=== PATIENT | male | born 1965 | race American Indian/Alaskan Native ===

== ENCOUNTER 2019-12-05 18:53 | Emergency (ER) | payer OTHER ==
--- NOTE | 2019-12-05 19:49 | XRay Report ---
Right hand 3 views INDICATION: Right hand pain following injury IMPRESSION: No fracture or subluxation of the right hand is identified. There is a chronic appearing fracture involving the ulnar styloid process. Signer Name: Merlin Gonzales MD Signed: 12/05/2019 7:45 PM Workstation Name: [id number]
--- NOTE | 2019-12-05 19:50 | XRay Report ---
Right wrist 4 views INDICATION: Right wrist pain following injury IMPRESSION: No acute fracture or subluxation of the wrist is identified. Chronic ulnar styloid proces s fracture noted. Signer Name: Merlin Gonzales MD Signed: 12/05/2019 7:45 PM Workstation Name: [id number]
[2019-12-05] MEDS ORDERED: HYDROcodone/ACETAMINOPHEN 5-325 MG TAB PO ONE (20:09)
--- NOTE | 2019-12-05 20:32 | Emergency Department Report ---
ED Upper Extremity Inj HPI - General Chief Complaint: Extremity Injury, Upper Stated Complaint: RIGHT HAND INJURY Time Seen by Provider: 12/05/19 19:31 Source: patient Mode of arrival: Ambulatory Limitations: No Limitations - History of Present Illness Initial Comments: Patient is a 54-year-old male presents emergency room with complaints of a right arm injury that occurred just prior to arrival. He states that he was helping to move a heavy generator and they accidentally dropped it and his arm got pushed between the generator and the forklift. He denies prolonged crush and states that it happened very quickly. He has pain to his right thumb, right index finger, right wrist. He states he has a tingling sensation in his right index finger. He denies any complete numbness or weakness. He denies any past medical history or allergies to medications. This occurred while he was working on the job. - Related Data Previous Rx's Medication Instructions Recorded Last Taken Type HYDROcodone/APAP 5-325 [[place] 1 each PO Q6HR PRN #10 tablet 12/05/19 Unknown Rx 5/325] Ibuprofen [Motrin 600 MG tab] 600 mg PO Q8H PRN #20 tablet 12/05/19 Unknown Rx Allergies Allergy/AdvReac Type Severity Reaction Status Date / Time No Known Allergies Allergy Unverified 12/05/19 19:03 ED Review of Systems ROS: Stated complaint: RIGHT HAND INJURY Other details as noted in HPI Comment: All other systems reviewed and negative ED Past Medical Hx - Past Medical History Previous Medical History?: No - Surgical History Past Surgical History?: No - Social History Smoking Status: Current Every Day Smoker Substance Use Type: Alcohol - Medications Home Medications: Home Medications Medication Instructions Recorded Confirmed Last Taken Type HYDROcodone/APAP 5-325 [[place] 1 each PO Q6HR PRN #10 tablet 12/05/19 Unknown Rx 5/325] Ibuprofen [Motrin 600 MG tab] 600 mg PO Q8H PRN #20 tablet 12/05/19 Unknown Rx ED Physical Exam - General Limitations: No Limitations General appearance: alert, in no apparent distress - Head Head exam: Present: atraumatic, normocephalic - Eye Eye exam: Present: normal appearance - ENT ENT exam: Present: mucous membranes moist - Extremities Exam Extremities exam: Present: other (ttp to the right lateral wrist, ttp to the right thumb, ttp to the right index finger MCP joint with edema present, there is ecchymosis present to the right anterior wrist, 2+ distal pulses, sensation intact, FROM of the right wrist, no snuffbox ttp, FROM of the right thumb, middle finger, ring finger and pinky finger, he is not able to fully flex the right index finger, he states he feels a pulling sensation when he attempts to flex the index finger, compartments are soft) - Neurological Exam Neurological exam: Present: alert, oriented X3 - Psychiatric Psychiatric exam: Present: normal affect, normal mood - Skin Skin exam: Present: warm, dry ED Course Vital Signs 12/05/19 12/05/19 18:59 21:03 Temperature 98.2 F 98.7 F Pulse Rate 82 63 Respiratory 18 18 Rate Blood Pressure 150/79 Blood Pressure 133/86 [Left] O2 Sat by Pulse 98 99 Oximetry ED Medical Decision Making - Radiology Data Radiology results: report reviewed Right wrist 4 views INDICATION: Right wrist pain following injury IMPRESSION: No acute fracture or subluxation of the wrist is identified. Chronic ulnar styloid process fracture noted. Signer Name: Merlin Gonzales MD Signed: 12/05/2019 7:45 PM Workstation Name: [id number] Transcribed By: SHELDON Dictated By: Merlin Gonzales MD Electronically Authenticated By: Merlin Gonzales MD Signed Date/Time: 12/05/191944 DD/ 44 TD/TT: Right hand 3 views INDICATION: Right hand pain following injury IMPRESSION: No fracture or subluxation of the right hand is identified. There is a chronic appearing fracture involving the ulnar styloid process. Signer Name: Merlin Gonzales MD Signed: 12/05/2019 7:45 PM Workstation Name: [id number] Transcribed By: Dictated By: Merlin Gonzales MD Electronically Authenticated By: Merlin Gonzales MD Signed Date/Time: 12/05/191944 DD/ 43 TD/TT: - Medical Decision Making Patient is a 54-year-old male presents emergency room with complaints of a right arm injury that occurred just prior to arrival. He states that he was helping to move a heavy generator and they accidentally dropped it and his arm got pushed between the generator and the forklift. He denies prolonged crush and states that it happened very quickly. He has pain to his right thumb, right index finger, right wrist. He states he has a tingling sensation in his right index finger. He denies any complete numbness or weakness. He denies any past medical history or allergies to medications. This occurred while he was working on the job. VSS. on exam: ttp to the right lateral wrist, ttp to the right thumb, ttp to the right index finger MCP joint with edema present, there is ecchymosis present to the right anterior wrist, 2+ distal pulses, sensation intact, FROM of the right wrist, no snuffbox ttp, FROM of the right thumb, middle finger, ring finger and pinky finger, he is not able to fully flex the right index finger, he states he feels a pulling sensation when he attempts to flex the index finger, compartments are soft. XR right wrist: No acute fracture or subluxation of the wrist is identified. Chronic ulnar styloid process fracture noted. XR right hand: No fracture or subluxation of the right hand is identified. There is a chronic appearing fracture involving the ulnar styloid process. Due to this being a work-related incident, his job needed a drug screen, this was completed by the lab and they filled out the appropriate forms as needed. Patient's pain treated while in the emergency department as he did not drive. Patient placed in sugar tong splint and given a sling. Given prescription for pain medication. Discussed in detail with patient the importance of following up with an orthopedic doctor. advised pt Please take medication as prescribed. Do not drive or operate heavy machinery while taking pain medication. Please follow-up with an orthopedic doctor in the next 2 days. It is very important that you follow-up with the orthopedic doctor to prevent permanent disability or loss of quality of life. Return to the emergency room for any new or worsening symptoms. - Differential Diagnosis Strain, sprain, fracture, dislocation Critical care attestation.: If time is entered above; I have spent that time in minutes in the direct care of this critically ill patient, excluding procedure time. ED Disposition Clinical Impression: Right wrist injury Qualifiers: Encounter type: initial encounter Qualified Code(s): S69.91XA - Unspecified injury of right wrist, hand and finger(s), initial encounter Injury of right index finger Qualifiers: Encounter type: initial encounter Qualified Code(s): S69.91XA - Unspecified injury of right wrist, hand and finger(s), initial encounter Injury of right thumb Qualifiers: Encounter type: initial encounter Qualified Code(s): S69.91XA - Unspecified injury of right wrist, hand and finger(s), initial encounter Disposition: DC- TO HOME OR SELFCARE Is pt being admited?: No Does the pt Need Aspirin: No Condition: Stable Instructions: Wrist Injury (ED), Finger Sprain (ED) Additional Instructions: Please take medication as prescribed. Do not drive or operate heavy machinery while taking pain medication. Please follow-up with an orthopedic doctor in the next 2 days. It is very important that you follow-up with the orthopedic doctor to prevent permanent disability or loss of quality of life. Return to the emergency room for any new or worsening symptoms. Prescriptions: Ibuprofen [Motrin 600 MG tab] 600 mg PO Q8H PRN #20 tablet PRN Reason: Pain HYDROcodone/APAP 5-325 [[place] 5/325] 1 each PO Q6HR PRN #10 tablet PRN Reason: Pain , Severe (7-10) Referrals: YARIEL STUBBS MD [Staff Physician] - 2-3 Days [facility] [Provider Group] - 2-3 Days EITAN FRIEDMAN MD [Referring] - 2-3 Days Forms: Work/School Release Form(ED) Time of Disposition: 20:34 Print Language: [place] CITIZEN
[2019-12-05 21:04] VITALS: BP 133/86
== END 2019-12-05 21:04 | disposition home or self-care (01) ==
LOC: ED 18:53
DX: S69.91XA Unspecified injury of right wrist, hand and finger(s), initial encounter (principal); F17.200 Nicotine dependence, unspecified, uncomplicated; Z79.1 Long term (current) use of non-steroidal anti-inflammatories (NSAID); Z79.899 Other long term (current) drug therapy; X58.XXXA Exposure to other specified factors, initial encounter; Y93.89 Activity, other specified; Y92.89 Other specified places as the place of occurrence of the external cause; Y99.8 Other external cause status

== ENCOUNTER 2022-04-23 02:17 | Emergency (ER) | payer SELFPAY ==
[2022-04-23 02:35] VITALS: BP 132/77
--- NOTE | 2022-04-23 08:26 | Cat Scan Report ---
CT HEAD WITHOUT CONTRAST INDICATION / CLINICAL INFORMATION: head ache. TECHNIQUE: All CT scans at this location are performed using CT dose reduction for ALARA by means of automated exposure control. COMPARISON: None available. FINDINGS: CEREBRAL/CEREBELLAR PARENCHYMA: The cerebral and cerebellar hemispheres are normal for age. No CT hood dence for an acute or subacute territorial infarct. HEMORRHAGE: No acute intra-axial hemorrhage or extra-axial fluid collection. MASS: No mass or mass effect. VENTRICULAR SYSTEM: Normal in size and morphology for the patient's age. ORBITS: No acute process. SOFT TISSUES/SKULL: No scalp hematoma or skull fracture. PARANASAL SINUSES/MASTOID AIR CELLS: Mild mucosal thickening of the bilateral ethmoid air cells and i nferior maxillary sinuses. The remaining paranasal sinuses are clear. IMPRESSION: 1. No acute intracranial process. 2. Mild bilateral ethmoid air cell and inferior maxillary sinus mucosal thickening. Signer Name: Tom Anderson MD Signed: 04/23/2022 8:22 AM Workstation Name: [id number]
--- NOTE | 2022-04-23 08:36 | Cat Scan Report ---
CT ORBIT/EAR/FOSSA WITHOUT CONTRAST HISTORY: Right eye pain TECHNIQUE: Helical CT was sagittal and coronal reformatted images without contrast. All CT scans at t his location are performed using CT dose reduction for ALARA by means of automated exposure control. COMPARISON: None. FINDINGS: The globes, optic nerves, extraocular muscles and retro-orbital fat appear symmetric and un remarkable bilaterally. No evidence for mass lesion or inflammation. Preseptal soft tissues are unrem arkable. The lacrimal glands are normal size and symmetric. The optic chiasm and sellar region are un remarkable. Mild mucosal thickening is noted in the ethmoid and maxillary sinuses. The remaining sinuses are marvin r. The nasal septum deviates to the left side by 5 mm. The mastoid air cells are clear. The bony structures are intact. No fracture or bone destruction. Visualized skull base and brain parenchyma are unremarkable. IMPRESSION: 1. No significant abnormality is detected involving the orbits on noncontrast CT. 2. Mild chronic sinus disease as described. 3. Deviated nasal septum. Signer Name: Toro Jamison Jr, MD Signed: 04/23/2022 8:32 AM Workstation Name: [id number]
--- NOTE | 2022-04-23 10:47 | Emergency Department Report ---
ED General Adult HPI - General Chief complaint: Eye Problems Stated complaint: VISION PROBLEMS/HEADACHE Time Seen by Provider: 04/23/22 08:04 Source: patient Mode of arrival: Ambulatory Limitations: No Limitations - History of Present Illness Initial comments: 57-year-old male with no significant past medical history reports to the ER with complaints of right eye pain and headache intermittently for couple of months. Patient reports intermittent blurry vision at times. Patient report he is supposed to wear his glasses however he has not been wearing his glasses consistently for couple of months. Patient denies any dizziness or weakness. No abnormal gait or walking concerns. No changes in his his speech or activity level. Patient denies any loss of vision. No other acute signs or symptoms reported. - Related Data Previous Rx's Medication Instructions Recorded Last Taken Type HYDROcodone/APAP 5-325 [[place] 1 each PO Q6HR PRN #10 tablet 12/05/19 Unknown Rx 5/325] Ibuprofen [Motrin 600 MG tab] 600 mg PO Q8H PRN #20 tablet 12/05/19 Unknown Rx Allergies Allergy/AdvReac Type Severity Reaction Status Date / Time No Known Allergies Allergy Verified 04/23/22 02:35 ED Review of Systems ROS: Stated complaint: VISION PROBLEMS/HEADACHE Other details as noted in HPI Comment: All other systems reviewed and negative ENT: ear pain Neurological: headache ED Past Medical Hx - Past Medical History Previous Medical History?: No - Surgical History Past Surgical History?: No - Social History Smoking Status: Never Smoker Substance Use Type: None - Medications Home Medications: Home Medications Medication Instructions Recorded Confirmed Last Taken Type HYDROcodone/APAP 5-325 [[place] 1 each PO Q6HR PRN #10 tablet 12/05/19 Unknown Rx 5/325] Ibuprofen [Motrin 600 MG tab] 600 mg PO Q8H PRN #20 tablet 12/05/19 Unknown Rx ED Physical Exam - General Limitations: No Limitations General appearance: alert, in no apparent distress - Head Head exam: Present: atraumatic, normocephalic - Eye Eye exam: Present: normal appearance, PERRL, EOMI. Absent: conjunctival injection Pupils: Present: normal accommodation - ENT ENT exam: Present: mucous membranes moist - Neck Neck exam: Present: normal inspection - Respiratory Respiratory exam: Present: normal lung sounds bilaterally. Absent: respiratory distress - Cardiovascular Cardiovascular Exam: Present: regular rate, normal rhythm. Absent: systolic murmur, diastolic murmur, rubs, gallop - GI/Abdominal GI/Abdominal exam: Present: soft, normal bowel sounds - Rectal Rectal exam: Present: deferred - Extremities Exam Extremities exam: Present: normal inspection - Back Exam Back exam: Present: normal inspection - Neurological Exam Neurological exam: Present: alert, oriented X3, normal gait - Psychiatric Psychiatric exam: Present: normal affect, normal mood - Skin Skin exam: Present: warm, dry, intact, normal color. Absent: rash ED Course Vital Signs 04/23/22 02:33 Temperature 98.3 F Pulse Rate 72 Respiratory 18 Rate Blood Pressure 132/77 [Left] O2 Sat by Pulse 99 Oximetry ED Medical Decision Making - Radiology Data [facility] [address] [place] [address] Cat Scan Report Signed Patient: EKATERINA DESIR MR#: [id number] : 1965 Acct:[id number] Age/Sex: 57 / M ADM Date: 04/23/22 Loc: ED Attending Dr: Ordering Physician: OUMOU LAROSE NP Date of Service: 04/23/22 Procedure(s): CT head/brain wo con Accession Number(s): [id number] cc: OUMOU LAROSE NP CT HEAD WITHOUT CONTRAST INDICATION / CLINICAL INFORMATION: head ache. TECHNIQUE: All CT scans at this location are performed using CT dose reduction for ALARA by means of automated exposure control. COMPARISON: None available. FINDINGS: CEREBRAL/CEREBELLAR PARENCHYMA: The cerebral and cerebellar hemispheres are normal for age. No CT evidence for an acute or subacute territorial infarct. HEMORRHAGE: No acute intra-axial hemorrhage or extra-axial fluid collection. MASS: No mass or mass effect. VENTRICULAR SYSTEM: Normal in size and morphology for the patient's age. ORBITS: No acute process. SOFT TISSUES/SKULL: No scalp hematoma or skull fracture. PARANASAL SINUSES/MASTOID AIR CELLS: Mild mucosal thickening of the bilateral ethmoid air cells and inferior maxillary sinuses. The remaining paranasal sinuses are clear. IMPRESSION: 1. No acute intracranial process. 2. Mild bilateral ethmoid air cell and inferior maxillary sinus mucosal thickening. Signer Name: Yariel Anderson MD Signed: 04/23/2022 8:22 AM Workstation Name: [id number] Transcribed By: Dictated By: YARIEL ANDERSON MD Electronically Authenticated By: YARIEL ANDERSON MD Signed Date/Time: 04/23/22821 DD/ 0 TD/TT: - Medical Decision Making 57-year-old male with no significant past medical history reports to the ER with complaints of right eye pain and headache intermittently for couple of months. Patient reports intermittent blurry vision at times. Patient report he is supposed to wear his glasses however he has not been wearing his glasses consistently for couple of months. Patient denies any dizziness or weakness. No abnormal gait or walking concerns. No changes in his his speech or activity level. Patient denies any loss of vision. No other acute signs or symptoms reported. On physical exam patient has no orbital swelling. No injected conjunctive a. No foreign bodies present. PERRLA is intact. Patient is neurologically intact CT of head and orbits are negative with no acute process noted. Patient informed of clinical findings and imaging reports. Eye acuity right eye is 20/100 left eye 20/30 both eyes 20/60. Without correction Patient informed that he is likely experiencing eye pressure and pain with blurry vision due to the fact that he is not consistently wearing his eyeglasses as patient has to strain when seeing objects. Patient informed to follow with his weather forecaster for routine eye exams. Patient informed that he needs to wear his glasses more frequently at least every day does he is not straining his eyes to see. Patient agrees with plan of care and verbalized understanding. Patient is stable for discharge home. Vital Signs 04/23/22 02:33 Temperature 98.3 F Pulse Rate 72 Respiratory 18 Rate Blood Pressure 132/77 [Left] O2 Sat by Pulse 99 Oximetry Critical care attestation.: If time is entered above; I have spent that time in minutes in the direct care of this critically ill patient, excluding procedure time. ED Disposition Clinical Impression: Blurred vision, right eye Headache Qualifiers: Headache type: other headache syndrome Qualified Code(s): G44.89 - Other headache syndrome Disposition: 01 HOME / SELF CARE / HOMELESS Is pt being admited?: No Condition: Stable Instructions: Blurred Vision, Adult, General Headache Without Cause Additional Instructions: Please follow-up with your primary care provider as well as follow-up with your weather forecaster for routine eye care as well as possible adjustment of your eyeglasses. Please start to wear your eyeglasses more frequently. Referrals: DEMIAN CHU MD [Primary Care Provider] - 3-5 Days
== END 2022-04-23 11:09 | disposition home or self-care (01) ==
LOC: ED 02:17
DX: H53.8 Other visual disturbances (principal); R51.9 Headache, unspecified; Z79.899 Other long term (current) drug therapy
CPT/HCPCS: 70450; 70480; 99283